=== PATIENT | male | born 1960 | race Caucasian/White ===

== ENCOUNTER 2019-08-16 | Emergency (ER) | payer OTHER ==
[2019-08-16] MEDS ORDERED: CEPHALEXIN500 M1 PO (11:32)
== END 2019-08-16 11:57 | DRG 605 ==
PROC: 0HQ1XZZ Repair Face Skin, External Approach (ICD-10-PCS; principal; 2019-08-16)
DX: S01.81XA Laceration without foreign body of other part of head, initial encounter (principal); F91.8 Other conduct disorders; W19.XXXA Unspecified fall, initial encounter; Y92.149 Unspecified place in prison as the place of occurrence of the external cause